=== PATIENT | male | born 1995 | race African-American/Black ===

== ENCOUNTER 2018-11-30 23:44 | Emergency (ER) | payer OTHER ==
[~2018-11-30] VITALS: Ht 185.4 cm; Wt 74.8 kg
--- NOTE | 2018-11-30 23:48 | NUR ---
ED Nurse Note: unable to triage, patient went to car
[2018-12-01 00:15] VITALS: BP 137/83
--- NOTE | 2018-12-01 00:18 | NUR ---
ED Nurse Note: Patient walked in to Er c/o cough x 2 weeks. AAO x4, VSS at this time, skin is dry intact.
[2018-12-01] MEDS ORDERED: ZITHROMAX250 MG ORAL (00:22)
[2018-12-01] MEDS ORDERED: GUAIFENESIN-CO118 M1 ORAL (00:22)
--- NOTE | 2018-12-01 00:23 | Emergency Room Report ---
History of Present Illness General Chief Complaint: Upper Respiratory Illness Source: Patient Present Illness [facility] This is a 22-year-old male with no past medical history. He presents with chief complaint of a cough. Onset for last 2 weeks. Reductive of phlegm. No fever chills. no nausea no vomiting. No history of asthma. Worse with lying flat. Worse in the last few days. No relief with [id number] medication. Allergies: Coded Allergies: No Known Allergies (Unverified , 11/30/18) Patient History Past Medical History: see triage record, old chart reviewed Past Surgical History: none Pertinent Family History: none Social History: Denies: smoking Immunizations: other Reviewed Nursing Documentation: PMH: Agreed; PSxH: Agreed Nursing Documentation-PMH Past Medical History: No Stated History Review of Systems Eye: Denies: eye pain, blurred vision ENT: Denies: ear pain, nose congestion, throat swelling Respiratory: Reports: cough; Denies: shortness of breath Cardiovascular: Denies: chest pain, palpitations Gastrointestinal: Denies: abdominal pain, diarrhea, nausea, vomiting Musculoskeletal: Denies: back pain, joint pain Skin: Denies: rash Neurological: Denies: headache, numbness Endocrine: Denies: increased thirst, increased urine Hematologic/Lymphatic: Denies: easy bruising All Other Systems: negative except mentioned in HPI Physical Exam Vital Signs Date Time Temp Pulse Resp B/P (MAP) Pulse Ox O2 Delivery O2 Flow Rate FiO2 11/30/18 23:50 98.4 100 18 137/83 (101) 98 Room Air Vitals normal Sp02 EP Interpretation: reviewed, normal General Appearance: well appearing, no apparent distress, alert Head: normocephalic, atraumatic Eyes: bilateral eye PERRL, bilateral eye EOMI ENT: hearing grossly normal, normal pharynx Neck: full range of motion, supple, no meningismus Respiratory: chest non-tender, lungs clear, normal breath sounds Cardiovascular #1: regular rate, rhythm, no murmur Gastrointestinal: normal bowel sounds, non tender, no mass, no organomegaly, no bruit, non-distended Musculoskeletal: back normal, gait/station normal, normal range of motion Psychiatric: mood/affect normal Skin: warm/dry Medical Decision Making Diagnostic Impression: Primary Impression: Upper respiratory infection Qualified Codes: J06.9 - Acute upper respiratory infection, unspecified ER Course Patient with a cough for last 2 weeks. Most likely a viral bronchitis. Because it has been going for over a week, we will put him on antibiotics. No evidence of ACS, PE, dissection to name a few. Last Vital Signs Date Time Temp Pulse Resp B/P (MAP) Pulse Ox O2 Delivery O2 Flow Rate FiO2 12/01/18 00:15 98.4 18 137/83 98 Room Air 12/01/18 00:15 100 Status: unchanged Disposition: HOME, SELF-CARE Condition: Stable Scripts Guaifenesin/Codeine Phos* (ROBITUSSIN AC*) 118 Ml Liquid 1 TSP ORAL Q6H PRN for For Cough, #118 ML 0 Refills Prov: Juan Francisco Tompkins MD 12/01/18 Azithromycin* (ZITHROMAX*) 250 Mg Tablet 250 MG ORAL DAILY, #6 TAB 0 Refills Take two tables once daily for 1 day, then one tablet once daily for 4 days. Prov: Juan Francisco Tompkins MD 12/01/18 Patient Instructions: Upper Respiratory Infection, Adult Additional Instructions: Follow-up with your doctor in 7 days. Return if symptoms worsen. Juan Francisco Tompkins MD Dec 01, 2018 00:23
--- NOTE | 2018-12-01 00:37 | NUR ---
ED Nurse Note: Pt cleared by health care Provider for discharge. DC instructions/prescription was given and explained to pt and verbalized understanding of teachings. All medical deviecs such as ID band removed. Pt is AAO x4, ambulatory and left with all personal belongings.
== END 2018-12-01 00:49 | disposition home or self-care (01) ==
LOC: EMR 12-01 00:30
DX: J06.9 Acute upper respiratory infection, unspecified (principal)
CPT/HCPCS: 99282